=== PATIENT | female | born 1975 ===

== ENCOUNTER → 2023-10-30 11:50 | Outpatient (REF) | payer OTHER, SELFPAY | LOC: HWWDC 11:50 | PROVIDERS: ATTENDING PHYSICIAN Nurse Practitioner Adult Health; FAMILY PHYSICIAN Family Medicine | DX: Z12.31 Encounter for screening mammogram for malignant neoplasm of breast (principal); R92.2 Inconclusive mammogram | CPT/HCPCS: 77063; 77067 ==